=== PATIENT | female | born 1995 | race African-American/Black ===

== ENCOUNTER 2017-03-19 21:55 | Emergency (ER) | payer SELFPAY ==
[2017-03-19 20:29] LABS: ASCORBIC ACID (UR NOT ORDER) NEG (NEG); BILIRUBIN, URINE NEGATIVE (NEG); ER URINALYSIS TAT 0 Hrs 10 Mins; KETONE, URINE NEGATIVE (NEG); LEUKOCYTE ESTERASE(NOT OR TRACE (NEG); NITRITE (URINE) NEG (NEG); WBC (NOT ORDERED) (RFLEX) 1 (0-5)
[2017-03-19 22:15] LABS: SOURCE: FEMALE URINE
[2017-03-19 22:17] LABS: CHLAMYDIA TRACH PCR DETECTED (NOT DETEC); GC PCR NOT DETECTED (NOT DETECT)
== END 2017-03-19 22:00 | disposition home or self-care (01) ==
LOC: ER 21:55
PROVIDERS: Physician Assistant Medical
DX: Z11.3 Encounter for screening for infections with a predominantly sexual mode of transmission (principal)
CPT/HCPCS: 81001; 84703; 87491; 87591; 96372; 99283; A9270-GY; J0696